=== PATIENT | female | born 1955 | race African-American/Black ===

== ENCOUNTER 2019-10-06 18:40 | Inpatient (IN) | payer MEDICARE ==
[~2019-10-06] VITALS: Ht 162.6 cm; Wt 56.7 kg
[2019-10-06 19:16] LABS: BASOPHILS % 0.4 % (0.0-1.0); EOSINOPHILS # (AUTO) 0.1 (0.0-0.4); HEMATOCRIT 37.7 % (34.2-44.1); HEMOGLOBIN 11.9 g/dL (12.0-16.0); LYMPHOCYTES # (AUTO) 2.5 (1.0-3.2); LYMPHOCYTES % 47.2 % (18.0-39.1); MEAN CORPUSCULAR HEMOGLOBIN 29.2 pg (28-32); MEAN CORPUSCULAR HGB CONC 31.6 g/dL (31-35); MEAN CORPUSCULAR VOLUME 92.4 fL (81-99); MONOCYTES # (AUTO) 0.5 (0.2-0.8); MONOCYTES % 9.2 % (4.4-11.3); NEUTROPHILS # (AUTO) 2.2 (2.1-6.9); PLATELET COUNT 216 x10e3/uL (140-360); RED BLOOD COUNT 4.08 x10e6/uL (3.6-5.1); RED CELL DISTRIBUTION WIDTH 14.2 % (11.7-14.4)
--- NOTE | 2019-10-06 19:31 | NUR ---
pt yelling at staff. pt states "please god why are you shocking me like this." pt lifting arms and shaking arms in present of staff. pt stating "why am i shaking like this." pt immediately stops shaking when redirected. pt repeatedly attempting to get out of stretcher and then closes eyes and attempts to slump over. pt immediately wakes up when nurse attempts to assist patient back to bed and becomes combative. pt yelling out "help me please."
[2019-10-06 19:33] LABS: ALANINE AMINOTRANSFERASE 12 IU/L (0-55); ALBUMIN 3.7 g/dL (3.5-5.0); ALBUMIN/GLOBULIN RATIO 0.9 (0.8-2.0); ALKALINE PHOSPHATASE 63 IU/L (40-150); CALCIUM 9.5 mg/dL (8.4-10.2); CARBON DIOXIDE 27 mmol/L (22-29); CHLORIDE 105 mmol/L (98-107); CREATINE KINASE 500 IU/L (29-168); CREATININE, SERUM 1.42 mg/dL (0.57-1.11); EST GLOMERULAR FILTRATION RATE 37 ML/MIN (60-); GLUCOSE 99 mg/dL (74-118); SODIUM 141 mmol/L (136-145)
[2019-10-06] MEDS ORDERED: LORAZEPAM INJ 2 MG/ML VIAL IV ONE (19:45)
--- NOTE | 2019-10-06 19:45 | NUR ---
pt remains agitated. pt yelling "im going to sylwia the hell out of all you for this, i cant breathe, im shaking, help me, help me."
[2019-10-06 19:50] LABS: BLOOD UREA NITROGEN 21 mg/dL (7-26); BUN/CREATININE RATIO 15 (6-25)
--- NOTE | 2019-10-06 19:55 | NUR ---
pt noted calm at this time after ativan. pt resting quietly in bed. no distress noted. resp even and unlabored on ra.
[2019-10-06 20:11] LABS: SALICYLATE < 5.0 mg/dL (0-30)
[2019-10-06 20:18] LABS: CLARITY,URINE CLEAR (CLEAR); COLOR,URINE YELLOW (YELLOW); LEUKOCYTE ESTERASE ,URINE SMALL (NEGATIVE); NITRITE,URINE NEGATIVE (NEGATIVE); PROTEIN,URINE DIPSTICK NEGATIVE (NEGATIVE)
[2019-10-06 20:19] LABS: AMPHETAMINES SCREEN,URINE NEGATIVE (NEGATIVE); BACTERIA,URINE MANY /HPF; BENZODIAZEPINES SCREEN,URINE POSITIVE (NEGATIVE); BILIRUBIN,URINE NEGATIVE (NEGATIVE); EPITHELIAL CELLS,URINE MANY /LPF; KETONES,URINE NEGATIVE (NEGATIVE); PHENCYCLIDINE SCREEN,URINE NEGATIVE (NEGATIVE); URINE UROBILINOGEN 0.2 mg/dL (0.2 - 1); WBC,URINE (MAN) >50 /HPF (0-5)
--- NOTE | 2019-10-06 20:21 | Diagnostic Imaging Report ---
EXAMINATION: CHEST SINGLE (PORTABLE) INDICATION: SOB COMPARISON: None FINDINGS: TUBES and LINES: None. LUNGS: Normal lung volumes. Strandy right basilar opacity, likely atelectasis.. PLEURA: No pleural effusion or pneumothorax. HEART AND MEDIASTINUM: The cardiomediastinal silhouette is unremarkable. BONES AND SOFT TISSUES: Impaction deformity of the greater tuberosity of the right humerus, likely remote trauma. UPPER ABDOMEN: No free air under the diaphragm. IMPRESSION: Mild strandy right basilar atelectasis. No consolidation. Signed by: Jethro Wallace MD on 10/06/2019 8:18 PM
[2019-10-06] MEDS ORDERED: CEFTRIAXONE SOD 1 GM/NS 50 ML 50 ML IV ONE (20:45)
--- NOTE | 2019-10-06 20:45 | Emergency Department Note ---
History of Present Illnes History of Present Illness Chief Complaint: General Medicine Complaints History of Present Illness This is a 63 year old female ems reports [facility] breathing. resp are even and unlabored, O2 sat ra 100%. pt on ems stretcher yelling "help me, help me." pt to rm 10 and transferred to bed. pt uncooperative, combative and yelling at staff. PT HAS PSYCHIATRIC HISTORY . Historian: Patient Arrival Mode: [place] Onset (how long ago): unknown Location: NONE Quality: REPORTED SOB Radiation: Reports non-radiation Severity: mild Onset quality: unable to specify Timing of current episode: unable to specify Progression: unable to specify Chronicity: new Context: Denies recent illness, Denies recent surgery, Denies trauma/injury Relieving factors: none Exacerbating factors: none Associated symptoms: Reports denies other symptoms Past Medical/Family History Physician Review I have reviewed the patient's past medical and family history. Any updates have been documented here. Past Medical History Recent Fever: No Clinical Suspicion of Infectio: No New/Unexplained Change in Ment: No Past Medical History: Hypertension, Other Mental Illness Other Surgery: r arm surgery for fracture Social History Smoking Cessation: Current every day smoker Counseling Performed: Yes Alcohol Use: None Any Illegal Drug Use: Yes ("smoke crack") Physically hurt or threatened: No Other Any Pre-Existing Lines (PICC,: No Review of Systems Review of Systems Constitutional: Reports no symptoms EENTM: Reports no symptoms Cardiovascular: Reports no symptoms Respiratory: Reports as per HPI Gastrointestinal: Reports no symptoms Genitourinary: Reports no symptoms Musculoskeletal: Reports no symptoms Integumentary: Reports no symptoms Neurological: Reports no symptoms Psychological: Reports emotional problems, Reports other (PT AGITATATED) Endocrine: Reports no symptoms Hematological/Lymphatic: Reports no symptoms Physical Exam Related Data Allergies: Coded Allergies: Penicillins (Verified Allergy, Unknown, 10/07/19) Triage Vital Signs Vital Signs Date Time Temp Pulse Resp B/P (MAP) Pulse Ox O2 Delivery O2 Flow Rate FiO2 10/06/19 19:02 97.9 85 19 157/99 100 Room Air Vital signs reviewed: Yes Physical Exam CONSTITUTIONAL Constitutional: Present well-developed, Present well-nourished; Absent distressed HENT HENT: Present normocephalic, Present atraumatic, Present oropharynx clear/moist, Present nose normal HENT L/R: Present left ext ear normal, Present right ext ear normal EYES Eyes: Reports PERRL, Reports conjunctivae normal NECK Neck: Present ROM normal PULMONARY Pulmonary: Present effort normal, Present breath sounds normal CARDIOVASCULAR Cardiovascular: Present regular rhythm, Present heart sounds normal, Present capillary refill normal, Present normal rate GASTROINTESTINAL Abdominal: Present soft, Present nontender, Present bowel sounds normal GENITOURINARY Genitourinary: Present exam deferred SKIN Skin: Present warm, Present dry MUSCULOSKELETAL Musculoskeletal: Present ROM normal NEUROLOGICAL Neurological: Present alert, Present no gross motor or sensory deficits, Present other (DISORIENTED TO TIME) PSYCHOLOGICAL Psychological: Present other (FLIGHT OF IDEASE, MANIC) Results Laboratory Result Diagram: 10/06/19191210/06/191912 Laboratory Laboratory Tests Test 10/06/19 19:25 10/06/19 19:15 10/06/19 19:13 Urine Color Yellow (YELLOW) Urine Clarity Clear (CLEAR) Urine pH 6 (5 - 7) Urine Specific [place] 1.025 (1.010-1.025) Urine Protein Negative (NEGATIVE) Urine Glucose (UA) Negative (NEGATIVE) Urine Ketones Negative (NEGATIVE) Urine Blood Trace (NEGATIVE) Urine Nitrite Negative (NEGATIVE) Urine Bilirubin Negative (NEGATIVE) Urine Urobilinogen 0.2 mg/dL (0.2 - 1) Urine Leukocyte Esterase Small (NEGATIVE) Urine RBC 11-20 /HPF (0-5) Urine WBC >50 /HPF (0-5) Urine Epithelial Cells Many /LPF (NONE) Urine Bacteria Many /HPF (NONE) Urine Opiates Screen Negative (NEGATIVE) Urine Methadone Screen Negative (NEGATIVE) Urine Barbiturates Screen Negative (NEGATIVE) Urine Phencyclidine Screen Negative (NEGATIVE) Urine Amphetamines Screen Negative (NEGATIVE) Urine Methamphetamines Screen Negative (NEGATIVE) Urine Benzodiazepines Screen Positive (NEGATIVE) Urine Cocaine Screen Negative (NEGATIVE) Urine Cannabinoids Screen Negative (NEGATIVE) Salicylates Level < 5.0 mg/dL (0-30) Acetaminophen Level < 3.0 ug/mL (10-30) Ethyl Alcohol Level < 10.0 mg/dL (0.0-10.0) White Blood Count 5.19 x10e3/uL (4.8-10.8) Red Blood Count 4.08 x10e6/uL (3.6-5.1) Hemoglobin 11.9 g/dL (12.0-16.0) Hematocrit 37.7 % (34.2-44.1) Mean Corpuscular Volume 92.4 fL (81-99) Mean Corpuscular Hemoglobin 29.2 pg (28-32) Mean Corpuscular Hemoglobin Concent 31.6 g/dL (31-35) Red Cell Distribution Width 14.2 % (11.7-14.4) Platelet Count 216 x10e3/uL (140-360) Neutrophils (%) (Auto) 42.0 % (38.7-80.0) Lymphocytes (%) (Auto) 47.2 % (18.0-39.1) Monocytes (%) (Auto) 9.2 % (4.4-11.3) Eosinophils (%) (Auto) 1.0 % (0.0-6.0) Basophils (%) (Auto) 0.4 % (0.0-1.0) Neutrophils # (Auto) 2.2 (2.1-6.9) Lymphocytes # (Auto) 2.5 (1.0-3.2) Monocytes # (Auto) 0.5 (0.2-0.8) Eosinophils # (Auto) 0.1 (0.0-0.4) Basophils # (Auto) 0.0 (0.0-0.1) Absolute Immature Granulocyte (auto 0.01 x10e3/uL (0-0.1) Sodium Level 141 mmol/L (136-145) Potassium Level 4.0 mmol/L (3.5-5.1) Chloride Level 105 mmol/L (98-107) Carbon Dioxide Level 27 mmol/L (22-29) Anion Gap 13.0 mmol/L (8-16) Blood Urea Nitrogen 21 mg/dL (7-26) Creatinine 1.42 mg/dL (0.57-1.11) Estimat Glomerular Filtration Rate 37 ML/MIN (60-) BUN/Creatinine Ratio 15 (6-25) Glucose Level 99 mg/dL (74-118) Calcium Level 9.5 mg/dL (8.4-10.2) Total Bilirubin 0.2 mg/dL (0.2-1.2) Aspartate Amino Transf (AST/SGOT) 20 IU/L (5-34) Alanine Aminotransferase (ALT/SGPT) 12 IU/L (0-55) Alkaline Phosphatase 63 IU/L (40-150) Creatine Kinase 500 IU/L (29-168) Creatine Kinase MB 3.60 ng/mL (0-5.0) Troponin I < 0.001 ng/mL (0-0.300) B-Type Natriuretic Peptide 21.1 pg/mL (0-100) Total Protein 7.6 g/dL (6.5-8.1) Albumin 3.7 g/dL (3.5-5.0) Globulin 3.9 g/dL (2.3-3.5) Albumin/Globulin Ratio 0.9 (0.8-2.0) Lab results reviewed: Yes Imaging Imaging results reviewed: Yes Impressions EXAMINATION: CHEST SINGLE (PORTABLE) INDICATION: SOB COMPARISON: None FINDINGS: TUBES and LINES: None. LUNGS: Normal lung volumes. Strandy right basilar opacity, likely atelectasis.. PLEURA: No pleural effusion or pneumothorax. HEART AND MEDIASTINUM: The cardiomediastinal silhouette is unremarkable. BONES AND SOFT TISSUES: Impaction deformity of the greater tuberosity of the right humerus, likely remote trauma. UPPER ABDOMEN: No free air under the diaphragm. IMPRESSION: Mild strandy right basilar atelectasis. No consolidation. Signed by: Mick Morales MD on 10/06/2019 8:18 PM Dictated By: MICK MORALES MD 17 Assessment & Plan Medical Decision Making MDM PT WITH REPORTED SOB BUT HAS MENTAL DISORDER AND IS AGITATED, SCREAMING, FLIGHT OF IDEAS CBC, CMP, CARDIAC ENZYME, CXR , UA ETOH, UDS, ACETAMINOPHEN, SALICYLATE, ORDERED TO CLEAR FOR PSYCHIATRIC EVALUATION, ATIVAN 1 MG IV ORDERED DUE TO PT'S AGITATION PT FOUND TO HAVE UTI ROCEPHIN 1 GRAM IV ORDERED BROWN FROM MAT TEAM ARRIVED AT 2150 TO EVALUATE PT IS SETTING UP INVOLUNTARY PSYCH, BENJA BEING OBTAINED Assessment & Plan Final Impression: (1) Schizoaffective disorder (2) Agitated (3) Paranoia (psychosis) Last Vital Signs Date Time Temp Pulse Resp B/P (MAP) Pulse Ox O2 Delivery O2 Flow Rate FiO2 10/06/19 19:02 97.9 85 19 157/99 100 Room Air Medications in the ED Lorazepam 1 mg ONCE ONCE IV Last administered on 10/06/19at 19:48; Admin Dose 1 MG; Start 10/06/19 at 19:45; Stop 10/06/19 at 19:46; Status DC JANY PALM MD Oct 06, 2019 20:45
--- NOTE | 2019-10-06 21:45 | NUR ---
SITTER ARRIVED PER ORDERS.
--- NOTE | 2019-10-06 21:48 | NUR ---
MAT NURSE ARRIVED TO EVAL PATIENT. LABRESULTS AND CHART PROVIDED. SPOKE TO MAT NURSE.
--- NOTE | 2019-10-07 00:15 | NUR ---
MAT NURSE COMPLETED EVAL. PAPERWORK ON CHART.
--- NOTE | 2019-10-07 02:23 | NUR ---
PT C/O FEELING RESTLESS. PT STATES THAT "SHOCKS ARE RUNNING THROUGH MY WHOLE BODY AGAIN." PT REQUESTING SEDATIVE. PT RESTING IN BED. NO DISTRESS NOTED RESP EVEN AND UNLABORED ON RA. INFORMED. ATIVAN ORDERED.
[2019-10-07] MEDS ORDERED: LORAZEPAM INJ 2 MG/ML VIAL IV ONE ×3 (02:30→23:15)
--- NOTE | 2019-10-07 08:02 | NUR ---
CALLED MAT TEAM SOMEONE IS COMING TO DO OPC THIS MORNING, SHE IS SELF PAY WILL HAVE TO WAIT UNTIL BED AVAILABLE, THEY HAVE BEEN RUNNING SLOW, PER ROLAND AT MAT DISPATCH.
[2019-10-07] MEDS ORDERED: ACETAMINOPHEN 325 MG TAB PO ONE ×2 (08:30→23:15)
[2019-10-07] MEDS ORDERED: LORAZEPAM INJ 2 MG/ML VIAL ONE ×2 (10:34→10:39)
--- NOTE | 2019-10-07 11:00 | NUR ---
TOOK OVER CARE FROM MERLY MORILLO AT THIS TIME. PT YELLING LOUDLY, "HELP ME, HELP ME!" UPON ASKING PATIENT WHAT SHE NEEDS, SHE IS UNABLE TO VOCALIZE WHAT IT IS SHE WANTS. PT CONTINUES TO SCREAM AND BE UNCCOPERATIVE. BOX TOE FLANGER STITCHDOWNS IS AT BEDSIDE 1:1. PATIENT DENIES WANTING TO HURT HERSELF OR OTHERS. WILL CONTINUE TO MONITOR CLOSELY.
--- NOTE | 2019-10-07 11:15 | NUR ---
PSYCH LIBRARY SERVICES COORDINATOR AT BEDSIDE TO ASSESS PATIENT AT THIS TIME.
[2019-10-07] MEDS ORDERED: HALOPERIDOL LACTATE 5 MG/ML VIAL IV ONE (11:30)
--- NOTE | 2019-10-07 12:29 | NUR ---
PATIENT IS RESTING COMFORTABLY IN STRETCHER AT THIS TIME. VITALS WNL, RESPIRATIONS EVEN AND UNLABORED. THERE ARE NO SIGNS OF DISTRESS. HANDLE ATTACHER AT BEDSIDE. ROOM IS FREE AND CLEAR OF ALL SAFETY HAZARDS. WILL CONTINUE TO MONITOR CLOSELY.
--- NOTE | 2019-10-07 15:00 | NUR ---
Pt escorted to restroom when she vocalized she needed to use restroom. Pt was very unsteady with ambulation and required 2-person assist. Pt's linens changed and placed in adult diaper due to also being incontinent. Patient placed back in bed and is now resting comfortably.
--- NOTE | 2019-10-07 16:45 | NUR ---
PT STATED SHE NEEDED TO GO TO THE RESTROOM. UPON ASSESSMENT, PATIENT HAD SOILED DIAPER. MONICA-CARE AND LINEN CHANGE PROVIDED BY PRIMARY RN AND ER PCT. PATIENT CALM.
--- NOTE | 2019-10-07 17:09 | NUR ---
DINNER HAS BEEN DELIVERED TO PATIENT'S BEDSIDE. NO UTENISLS ON TRAY. PT IS FEEDING HERSELF A BURGER, CHIPS, AND COOKIE. PATIENT EXHIBITS NO SIGNS OF DISTRESS OR PAIN. SITTER REMAINS AT BEDSIDE MONITORING PATIENT.
--- NOTE | 2019-10-07 17:49 | NUR ---
PATIENT HAS FINSIHED DINNER AND IS NOW LAYING IN BED WITH EYES CLOSED. RE-ASSESSED PATIENT'S VITALS. PATIENT STATED THE FOOD WAS VERY GOOD. PATIENT STATES, "I JUST WANT HELP FINDING MY WAY BACK." THIS CLINICIAN ASKED WHAT THAT MEANS, AND PATIENT THEN STATED SHE DIDN'T KNOW AND CLOSED HER EYES AGAIN. SITTER REMAINS AT BEDSIDE. WILL CONTINUE TO MONITOR.
--- NOTE | 2019-10-07 18:54 | NUR ---
PATIENT REMAINS IN BED WITH EYES CLOSED. CALM AT THIS TIME WITH SITTER AT BEDSIDE.
--- NOTE | 2019-10-07 21:31 | NUR ---
PATIENT CALM/COOPERATIVE, PROVIDED WITH SNACKS REQUESTED, 1:1 SITTER AT BEDSIDE, NAD, WILL CONTINUE TO MONITOR.
--- NOTE | 2019-10-07 23:03 | NUR ---
PATIENT CONTINUOUSLY ASKING TO SPEAK WITH THE LORD, C/O GENERALIZED BODY ACHES/PAINS AND GARCIA, INFORMED ATTENDING ED MD FOR ORDERS, PLACED VERBAL ORDERS, SEE MAR.
--- NOTE | 2019-10-08 07:30 | NUR ---
Assumed care of pt from Christopher MORELAND. Pt did not know what month it is, reoriented pt, pt reported her , informed pt today is her Birthday. Sang pt "happy birthday" with tech and pt started to smile. Pt started after a few minutes later to report the bed was shocking her. Noted pt was on stretcher without any additional padding, added waffle mattress to stretcher for additional protection to prevent skin breakdown and comfort.
[2019-10-08] MEDS ORDERED: HALOPERIDOL LACTATE 5 MG/ML VIAL IV ONE (09:30)
[2019-10-08] MEDS ORDERED: HALOPERIDOL LACTATE 5 MG/ML VIAL ONE (09:39)
--- NOTE | 2019-10-08 09:45 | NUR ---
Pt crying and yelling out "help me please, it's shocking me" repeatedly. Pt given Haldol 5mg for agitation. Pt has hx of schizoeffective disorder.
--- NOTE | 2019-10-08 09:53 | NUR ---
Called MAT team, this RN was notified that at 1200 they receive updates from [facility] and will call back and update this RN after notification.
[2019-10-08] MEDS ORDERED: CEFTRIAXONE SOD 1 GM/NS 50 ML 50 ML IV ONE (13:26)
[2019-10-08] MEDS ORDERED: LORAZEPAM INJ 2 MG/ML VIAL ONE (13:40)
[2019-10-08] MEDS ORDERED: LORAZEPAM INJ 2 MG/ML VIAL IV ONE (14:30)
--- NOTE | 2019-10-08 17:54 | NUR ---
Repeat CK redrawn
--- NOTE | 2019-10-09 05:31 | NUR ---
CINTIA BLAINEBetty CALLED AT THIS TIME FOR STATUS UPDATE. REQUESTED LABS WERE RECEIVED. PTS ADMITION IS BEING REVIEWED.
[2019-10-09] MEDS ORDERED: LORAZEPAM INJ 2 MG/ML VIAL IV ONE ×2 (07:00)
--- NOTE | 2019-10-09 07:00 | NUR ---
received report from off going nurse. 1:1 sitter at bedside. no s/s of acute distress. resp even and non labored. pending room assignment for transfer.
--- NOTE | 2019-10-09 08:41 | Diagnostic Imaging Report ---
ADDENDUM #1 Tiny parenchymal calcification within the right occipital chronic infarct is nonspecific, comparison to prior studies if available is recommended. Signed by: Dr. Maisha Goldsmith M.D. on 10/09/2019 10:02 AM ORIGINAL REPORT EXAMINATION: Head CT HISTORY: Altered mental status COMPARISON: None. TECHNIQUE: Helical axial images of the head were obtained. Reformatted coronal and sagittal images from the axial data. Dose modulation, iterative reconstruction, and/or weight based adjustment of the mA/kV was utilized to reduce the radiation dose to as low as reasonably achievable. Image quality: Motion/streaking artifact limits the evaluation of the skull base and posterior cranial fossa. FINDINGS: Parenchyma: 1. Cortical and subcortical encephalomalacia in the right lateral occipito-parietal region and right inferior temporal gyrus, likely related to a watershed distribution (in between the MCA and DIVORCE ATTORNEY vascular territories) chronic infarct with compensatory dilatation of the right atrium and temporal horn. 2. Severe confluent periventricular, whipple radiata and centrum semiovale white matter hypodensities, most likely nonspecific chronic microvascular ischemic changes. 3. Small chronic lacunar infarct in the left caudothalamic groove, bilateral putamen and whipple radiata. 4. No mass or hemorrhage. No CT evidence of acute territorial vascular insult. Extra-axial spaces:No abnormal density. No extra-axial fluid collections Brain volume: Normal for age. Ventricles: No hydrocephalus or displacement. Arteries: No density suggestive of thrombus. Dural sinuses: No abnormal density. Foramen magnum: No mass, Chiari malformation, or basilar invagination. Sella: No obvious mass. Paranasal/mastoid sinuses: Imaged portions unremarkable. Skull/Scalp: No lytic or blastic lesions. No fractures. IMPRESSION: 1. No acute intracranial abnormalities. 2. Right occipito-parietal and inferior temporal chronic infarct as detailed above. 3. Severe confluent chronic microvascular ischemic changes as above. Signed by: Dr. Maisha Goldsmith M.D. on 10/09/2019 8:37 AM
--- NOTE | 2019-10-09 09:39 | NUR ---
MAT TEAM CALLED TO SEE IF CHANGE IN PT, SPOKE WITH DR NICHOLS, WILL FAX MORE [employer]CLUSION[employer] TO FAX TO MORE PLACEMENTS TO SEE IF ANOTHER BUILDING WILL TAKE HER. LET HER KNOW THAT SHE NOW IS FORGETFUL AND STATING NOT UNDERSTANDING HOW SHE GOT HERE. ALSO ABLE TO REPORT THE PT IS GETTING ATIVAN. MAINFRAME DEVELOPER WILL GET THE FAXES AND OBTAIN SR NICHOLS SIGNATURES AND FAX BACK TO MAT TEAM FOR PROCESSING.
[2019-10-09] MEDS ORDERED: ZIPRASIDONE 20 MG VIAL IM STA (09:59)
[2019-10-09] MEDS ORDERED: LORAZEPAM INJ 2 MG/ML VIAL IV PRN ×2 (10:00→14:30)
[2019-10-09] MEDS: CEFTRIAXONE SOD 1 GM/NS 50 ML 50 ML IV SCH ×2 (10:18→21:00)
[2019-10-09] MEDS ORDERED: SODIUM CHLORIDE 0.9% 1000ML 1,000 ML IV SCH (11:00)
[2019-10-09] MEDS ORDERED: ZIPRASIDONE 20 MG VIAL IM PRN ×2 (13:15→14:15)
[2019-10-09] MEDS ORDERED: ASPIRIN 81 MG CHEW TAB PO ONE ×2 (13:15)
--- NOTE | 2019-10-09 13:20 | NUR ---
RCD PT FROM ER BY BED PT IS CONFUSED 1;1 SITTER WITH PATIENT AC TO ER NURSE REPORT PT FROM [facility] WE DONT NO ANY CONTACT NUMBER OR NO FAMILY CONTACT ,ADMISSION ASSESSMENT AND HISTORY DONE ,IV PATENT BY SALINE FLUSH AND STARTED D5 WITH NS 75 ML/HR ,BP 170/108 MM/HG NOTIFIED DR ZAVALA GOT NEW ORDERS,BED LOW AND LOCKED CALL LIGHT IN REACH
[2019-10-09 14:00] VITALS: BP 171/108
[2019-10-09] MEDS: DEXTROSE 5%/0.45% SOD CHL 1,000 ML IV SCH (14:15)
[2019-10-09 14:35] VITALS: BP 171/108
[2019-10-09] MEDS: RISPERIDONE 0.5 MG TAB PO SCH (15:04)
[2019-10-09] MEDS: HYDRALAZINE HCL 20 MG/ML VIAL IV PRN (15:05)
[2019-10-09 17:00] VITALS: BP 160/80
--- NOTE | 2019-10-09 18:20 | History and Physical ---
ADDENDUM: She also had UTI, started on IV Rocephin. We put her on Geodon 10 mg q.6 hours as needed due to the extreme agitation that she does have. We are going to send the urine for cultures also. She got the first dose of Rocephin in the emergency room. Carotid Doppler, echocardiogram has been done as part of the workup for old CVA that she had. We are going to check the total CK tomorrow and CK-MB and troponin also because of the elevated total CPK, which is most likely secondary to rhabdomyolysis. The patient is very poor historian. We are waiting for a possible transfer to [facility] due to the severe psychosis. Diet low-salt diet. I put her on Norvasc 10 mg daily and also hydralazine 10 mg IV every 4 hours as needed for hypertension. MD MASSIMO Barkley/REHANA /[id number]
--- NOTE | 2019-10-09 18:40 | NUR ---
notified the charge nurse about iv access she said she will start the new iv
--- NOTE | 2019-10-09 18:41 | History and Physical ---
HISTORY OF PRESENT ILLNESS: The patient is a 64-year-old female, who claimed that she has no past medical history, came to the emergency room two days ago with extreme confusion, hypertension, possible UTI, started on IV antibiotics. She had rhabdomyolysis. Started on IV fluids. The patient waiting to be transferred to [facility] facility due to psychosis. REVIEW OF SYSTEMS: CARDIOVASCULAR: No chest pain or palpitation. RESPIRATORY: No shortness of breath. No cough. GASTROINTESTINAL: No nausea. No vomiting. No diarrhea. GENITOURINARY: No frequency or dysuria. ALLERGIES: SHE IS ALLERGIC TO PENICILLIN. SOCIAL HISTORY: She smokes. She does not drink. PAST MEDICAL HISTORY: She denies any medical condition. PHYSICAL EXAMINATION: VITAL SIGNS: Blood pressure 132/74, temperature 98.1, heart rate 77 per minute, respiratory rate 16 per minute. HEART: Showed regular rate and rhythm. Normal S1, S2 sound. LUNGS: Clear bilaterally. ABDOMEN: Soft. EXTREMITIES: Show no edema. IMAGING DATA: Chest x-ray showed no significant abnormalities except for mild strandy right basilar atelectasis. No consolidation. CT of the head was done also which showed no acute intracranial abnormality. Right occipital parietal inferior temporal chronic infarct as stated above. Severe confluent chronic microvascular ischemic changes as above. Severe confluent periventricular whipple radiata and centrum semiovale white matter hypodensity, most likely nonspecific, chronic microvascular ischemic changes. Also, she was found to have some old chronic lacunar infarct . No mass or hemorrhage. No CT evidence for acute vascular insult likely chronic findings. LABORATORY DATA: On the blood work, we have CBC; white blood count 5.19, hemoglobin 11.9, hematocrit 37.7, and platelet count 216,000. On the BMP; sodium 131, potassium 4.0, chloride 105, CO2 27, BUN 21, creatinine 1.42, GFR 37, glucose 99, calcium 9.5, total bilirubin 0.2, AST 20, ALT 12, alkaline phosphatase 63, creatine kinase 509, CK-MB normal at 3.60, troponin 0.001, brain natriuretic peptide 21.1, total protein 7.6, albumin 3.7, albumin globulin ratio 0.9. Toxicology positive for benzodiazepines and Tylenol. Coronavirus test is pending. FINAL IMPRESSION: 1. Uncontrolled hypertension. 2. Psychosis. 3. Chronic renal failure stage 3. 4. Rhabdomyolysis. 5. Old right cerebrovascular accident without motor deficit. PLAN OF TREATMENT: Continue IV fluids. Continue monitoring total CK due to rhabdomyolysis. Continue ceftriaxone 1 g IV twice a day for possible UTI. Continue Tylenol 325 mg q.4 hours as needed for pain or fever. Aspirin 325 mg daily. She cannot take any statins because of the elevated CK. Continue Risperdal 0.25 mg twice a day. Continue Geodon 20 mg IM daily as needed for agitation. Psychiatric consult with Dr. Costa and also Neurology consult with Dr. Sebastian due to the old CVA. We are going to also do a carotid Doppler, echocardiogram. In the meantime, we are working to try to see if we can get her to a psych facility. MD MASSIMO Barkley/REHANA /[id number]
--- NOTE | 2019-10-09 18:43 | NUR ---
PT IS CONFUSED AND AGITATED I;1 SITTER WITH PT ,PULL THE IV OUT
--- NOTE | 2019-10-09 18:47 | NUR ---
PAGED DR ZAVALA TO NOTIFY OSMANY THE PT PULL THE IV LINE OUT
--- NOTE | 2019-10-09 18:53 | NUR ---
DR ZAVALA RETURNED THE CALL AND GOT NEW ORDERS
[2019-10-09] MEDS ORDERED: HALOPERIDOL LACTATE 5 MG/ML VIAL IM PRN (19:00)
[2019-10-09 19:44] VITALS: BP 161/105
[2019-10-09] MEDS: ACETAMINOPHEN 325 MG TAB PO PRN ×2 (19:48→23:45)
--- NOTE | 2019-10-09 19:56 | NUR ---
RECEIVE DPT IN BED CONFUSED ,NO IV LINE ,P T HAS SITTER ,PT HAD SHOWER NOW.AFTER SHOWER PT C/O HEADACHE AND GIVEN ORDERED MEDICINE CALL LIGHT WITH IN REACH ,CONTINUE TO MONITOR
[2019-10-09 20:20] VITALS: BP 161/105
[2019-10-09] MEDS ORDERED: ATORVASTATIN 20 MG TAB PO SCH (21:00)
--- NOTE | 2019-10-09 22:06 | Consultation ---
DATE OF CONSULTATION: Neurology Consultation HISTORY OF PRESENT ILLNESS: Margarita Mccoy is a 64-year-old female, comes to my attention for agitated confusion. The patient is denying any actual acute medical issues. States she does know she is in the hospital. States her sister, Kathleen, has a ploy to get her out of the house. She does not recall exactly how she got to the hospital. Denies being in the ambulance. According to the medical history from the record, the patient was actually brought in from a homeless [facility]pc and her sister does not seem to have been involved. I called the sister's number, I was not able to get anybody. REVIEW OF SYSTEMS: At this point, the patient denies any positives in the 14-point review of systems. PHYSICAL EXAMINATION: VITAL SIGNS: Stable. She is afebrile. Heart rate is 87, breathing comfortably on room air. Blood pressure is 136/82. GENERAL: Shows an awake, slightly angry woman. HEENT: Extraocular muscle intact. Face symmetric. Tongue is midline. Speech is clear. There is no nuchal rigidity. Pulses are regular rate and rhythm. PULMONARY: She is breathing comfortably on room air. There is no ataxia on exam. She does follow some commands, but she is somewhat paranoid and confused about her situation and is not able to participate very much. ASSESSMENT AND PLAN: I am seeing . Margarita Mccoy for agitated delirium. I think paranoid ideation, possibly schizophrenia might be playing a role. I would recommend having Psychiatry involved as well and will go from there. Otherwise, I would like to start Depakote to more dictating what her labs looks like. MD BRENDEN SIMON/WILBERTOL /[id number]
[2019-10-09 23:12] VITALS: BP 157/91
[2019-10-10] VITALS (8 sets, daily range): BP systolic 112–160; BP diastolic 67–102
[2019-10-10] MEDS: ACETAMINOPHEN 325 MG TAB PO PRN (04:15)
--- NOTE | 2019-10-10 05:45 | NUR ---
PT C/O LEG PAIN GIVEN ORDERED PAIN MEDICATION CALL LIGHT WITHIN REACH , SITTER IN THE ROOM CONTINUE TO MONITOR
[2019-10-10] MEDS: DEXTROSE 5%/0.45% SOD CHL 1,000 ML IV SCH (06:06)
--- NOTE | 2019-10-10 07:05 | NUR ---
PT REFUSED LAB ,BEDSIDE REPORT GIVEN TO THE ONCOMING NURSE
--- NOTE | 2019-10-10 07:10 | NUR ---
RCD PT AT BED PT IS CONFUSED 1;1 SITTER WITH PT ,IV PATENT AND RUNNING 75 ML /HR BED LOW AND LOCKED CALL LIGHT IN REACH
[2019-10-10] MEDS: CEFTRIAXONE SOD 1 GM/NS 50 ML 50 ML IV SCH (09:00)
[2019-10-10] MEDS: RISPERIDONE 0.5 MG TAB PO SCH (09:00)
[2019-10-10] MEDS ORDERED: ASPIRIN 325 MG TAB PO SCH (09:00)
[2019-10-10] MEDS ORDERED: AMLODIPINE BESYLATE 10 MG TAB PO SCH (09:00)
--- NOTE | 2019-10-10 09:08 | NUR ---
CALLED MAT TEAM, STILL PENDING PLACEMENT. LEV STATES THAT [facility] TYPICALLY DISCHARGES AROUND NOON AND WILL NOT BE ABLE TO KNOW ABOUT ANY ACCEPTANCES UNTIL AFTER THAT. WILL FOLLOW UP,
[2019-10-10] MEDS ORDERED: LOSARTAN POTASSIUM 100 MG TAB PO SCH (10:00)
[2019-10-10] MEDS ORDERED: ASPIRIN 81 MG CHEW TAB PO ONE (10:00)
--- NOTE | 2019-10-10 10:07 | NUR ---
SPOKE WITH PATIENT, SHE WAS ABLE TO GIVE SSN PROVIDED TO BUSINESS OFFICE, HAS BENEFITS, UPDATED FACESHEET LET MD KNOW, FAXED TO MAT TEAM, SHOULD BE PLACED TODAY.
--- NOTE | 2019-10-10 10:09 | Progress Note ---
DATE: Internal Medicine Progress Note SUBJECTIVE: The patient is still agitated, but much less than yesterday. We are still waiting for placement in inpatient psych facility. PHYSICAL EXAMINATION: HEART: Showed regular rhythm. Normal S1 and S2 sound. LUNGS: Clear bilaterally. ABDOMEN: Soft. EXTREMITIES: Show no edema. VITAL SIGNS: Blood pressure 160/86, temperature 97.6, heart rate 90 per minute, respiratory rate 16 per minute, and oxygen saturation 99%. LABORATORY DATA: On the CBC; white blood count 5.19, hemoglobin 11.9, hematocrit 37.7, and platelet count 216,000. On the BMP; sodium 141, potassium 4.0, chloride 105, CO2 27, BUN 21, creatinine 1.42, glucose 99, and calcium is 9.5. Total bilirubin 0.2, AST 20, ALT 12, and alkaline phosphatase 63. Total CK 509, CK-MB 3.60, and troponin 0.01. Brain natriuretic peptide 21.1. Total protein 7.6, albumin 3.7, and globulin 3.9. Coronavirus test is pending. The patient is refusing blood tests also. FINAL IMPRESSION: 1. Rhabdomyolysis. 2. Urinary tract infection. 3. Psychosis. 4. Uncontrolled hypertension. PLAN OF TREATMENT: We are going to continue antibiotics. We are going to change to p.o. because the patient at time pulled the IV line. Continue IV fluids because of rhabdomyolysis. Continue monitoring CK. Continue with amlodipine 10 mg daily. We are going to start her on losartan 50 mg daily. Also continue with Haldol 2 mg IM q.6 hours as needed for agitation, hydralazine 10 mg IV q.4 hours as needed for hypertension, lorazepam 1 mg IV q.6 hours as needed for agitation, Risperdal 0.25 mg twice a day around the clock, Zofran 4 mg IV, and Geodon 10 mg IM q.6 hours as needed for agitation. Psych consult with Dr. Costa also and Neurology consult with Dr. Sebastian also because of the history of old CVA. Also, we are going to order echocardiogram and carotid Doppler, put the patient on aspirin. We are going to start statins because of the rhabdomyolysis. MD MASSIMO Barkley/REHANA /[id number]
--- NOTE | 2019-10-10 11:00 | NUR ---
PT REFUSED BLOOD DRAW FOR TEST PAGED AND NOTIFIED DR ZAVALA HE SAID ITS OK
[2019-10-10] MEDS ORDERED: QUETIAPINE FUMARATE 25 MG TAB PO PRN (11:30)
[2019-10-10] MEDS ORDERED: LORAZEPAM INJ 2 MG/ML VIAL IV PRN (11:30)
[2019-10-10] MEDS: HYDRALAZINE HCL 20 MG/ML VIAL IV PRN (12:18)
--- NOTE | 2019-10-10 13:35 | NUR ---
SPOKE WITH ROGELIO AT [facility] [place]ILIT[place] DOC TO DOC PAGED DR RAI TO DR SALLY CLARK, PT ACCEPTED COMPLETING MOT LET DOC KNOW WAITING ON CONSTABLE TO [facility] [employer] [facility]PA[facility] PATIENT.
--- NOTE | 2019-10-10 13:36 | NUR ---
PAGED DR ZAVALA AND NOTIFIED PT IS ACCEPTED BY [facility] GOT THE DISCHARGE ORDER AND GOT THE ORDER TO DC IVF AND ANTIBIOTICS
--- NOTE | 2019-10-10 14:00 | NUR ---
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
--- NOTE | 2019-10-10 16:15 | Discharge Summary ---
HOSPITAL COURSE: A 64-year-old female, no past medical history, came here with confusion, extreme agitation, screaming all the time. The patient has to be started on antipsychotics here to keep her calm. Blood pressure was very high, we start her on a combination of amlodipine, losartan, and scheduled hydralazine as needed. Blood pressure started getting better with a combination of medication. We started losartan today so hopefully will be bringing down the blood pressure for the next few days. The patient also had rhabdomyolysis. She was started on IV fluids, but she is refusing IV fluids. She is pulling all the IV lines, refusing blood work. The patient blood pressure is better now. She is going to be transferred to inpatient psych facility due to extreme agitation, most likely secondary to dementia or schizophrenia. PHYSICAL EXAMINATION: HEART: Showed regular rhythm. Normal S1, S2 sound. LUNGS: Clear bilaterally. ABDOMEN: Soft. EXTREMITIES: Show no edema. VITAL SIGNS: : Temperature 98.2, heart rate 94 per minute, respiratory rate 18 per minute, blood pressure 112/67, it was today. Hopefully with blood pressure medication, blood pressure will continue to improve. LABORATORY DATA: Urine was done, it showed some contamination with Streptococcus, but less than 100,000 colonies of bacteria. FINAL IMPRESSION: 1. Psychosis, most likely secondary to dementia with schizophrenia. 2. Uncontrolled hypertension. 3. Rhabdomyolysis. PLAN OF TREATMENT: The patient will continue with current medication regimen, which include amlodipine 10 mg daily, losartan 50 mg daily, aspirin 325 mg daily. She is taking Haldol 2 mg IV q.6 hours as needed for agitation. She is taking also Seroquel 25 mg q.6 hours as needed for psychosis, losartan 50 mg daily, Risperdal 0.5 mg twice a day so that the patient is being much more calmer. Blood pressure is improving. The patient is going to be transferred to inpatient psych facility as I said, the patient is refusing IV fluids, IV antibiotics, so we are encouraging to drink more fluid for the rhabdomyolysis that she had, but were unable to check on that because the patient is refusing IV fluid. Another diagnosis, a history of old CVA, for that actually she is taking aspirin, she cannot take statins because the patient had also elevated CKs secondary to rhabdomyolysis. The patient is refusing IV fluids, pulling IV lines, so hopefully she will increase the amount of fluid that would improve the rhabdomyolysis. Troponins are completely negative. The patient has been accepted by the inpatient psych facility. MD MASSIMO Barkley/REHANA /[id number]
--- NOTE | 2019-10-10 18:47 | NUR ---
PT STILL CONFUSED 1;1 SITTER WITH PT AND WAITING FOR SUPERVISOR STAVE FINISHING ,BED SIDE REPORT GIVEN TO ONCOMING NURSE
--- NOTE | 2019-10-10 19:17 | NUR ---
RECEIVED PT SITTING ON THE SIDE OF THE BED ,NO ACUTE DISTRESS NOTED ORDERED TO DISCHARGE THE PT .SITTER TO THE WILL OF THE BED.CALL LIGHT WITH IN REACH ,CONTINUE TO MONITOR
--- NOTE | 2019-10-10 19:58 | NUR ---
PT IS DISCHARGED [facility] [place] ,PT WAS TAKEN TO [facility] BY BY BENEDICTO .BELONGINGS GIVEN TO THE PT .
[2019-10-10] MEDS ORDERED: RISPERIDONE 0.5 MG TAB PO SCH (21:00)
--- NOTE | 2019-10-10 21:46 | Consultation ---
DATE OF CONSULTATION: 10/10/2019 Psychiatric Consultation REASON FOR CONSULTATION: The patient evaluated and events noted. HISTORY OF PRESENT ILLNESS: The patient is a 64-year-old female, admitted to the hospital for altered mental status. Psychiatric consultation is called to evaluate the patient's psychosis. As per medical record, the patient had history of hypertension, psychosis, renal failure, rhabdomyolysis, and CVA. Upon evaluation today, the patient was found to be in the room with a sitter. She is alert, awake, and oriented to situation. She is calm, cooperative, and easily irritable. She is oriented to self only. She thinks she is at home at her friend's house. The patient does not know the current president. She denies any depression or anxiety. She denies any suicidal or homicidal ideation. She denies any problem with sleep or appetite. She is not paranoid at this time. Denies any hallucination. As per the sitter, the patient has been calm. She was confused yesterday, but doing much better today. PAST PSYCHIATRIC HISTORY: The patient denies past psychiatric history, though as per note, she has a history of schizoaffective disorder and some paranoia. She denies suicide attempts. She denies alcohol or drug use. FAMILY HISTORY: Denies. SOCIAL HISTORY: The patient is a living in a homeless senior care as per staff. MENTAL STATUS EXAM: The patient is an female. She is alert, awake, and oriented to self. She is confused. Her mood is fair and dysphoric. Her affect is blunt. Psychomotor status is passive. Thought process is loose. Insight and judgment are impaired. No paranoia elicited at this time. Denies suicidal or homicidal ideation. Denies any hallucination. Memory appears to be grossly impaired. CURRENT MEDICATION: 1. Aspirin p.r.n. 2. Amlodipine. 3. Risperdal 0.25 mg p.o. b.i.d. 4. Ceftriaxone. 5. Dextrose/sodium. 6. Acetaminophen. 7. Ativan p.r.n. IV. 8. Haldol p.r.n. IM. CURRENT LABS: WBC 5.19, RBC 4.08, hemoglobin 11.9, hematocrit 37.7. Chemistry; sodium is 141, potassium 4, chloride 105, CO2 27, BUN 21 and creatinine 1.42. AST 20, ALT 12. ASSESSMENT: 1. Unspecified psychosis (possible history of schizoaffective disorder). 2. Dementia. PLAN OF TREATMENT: 1. Increase Risperdal. 2. Reduce Ativan. 3. Continue Haldol p.r.n. IM. 4. Monitor for mood. 5. Supportive therapy. Thank you for this consultation. Dictated by Jeaneth Wells PA-C Stuart Costa MD QTV/MODL /[id number]
== END 2019-10-10 19:52 | DRG 885 ==
LOC: ER 18:46 → ERHOLD 10-09 10:57 → MED/SURG2 10-09 13:31 → OBSVTOIN 10-10 09:06
PROVIDERS: ADMIT Internal Medicine; ATTEND Internal Medicine
DX: F20.0 Paranoid schizophrenia (principal); F03.91 Unspecified dementia, unspecified severity, with behavioral disturbance; M62.82 Rhabdomyolysis; F05 Delirium due to known physiological condition; N39.0 Urinary tract infection, site not specified; Z86.73 Personal history of transient ischemic attack (TIA), and cerebral infarction without residual deficits; Z59.0 Homelessness; Z11.59 Encounter for screening for other viral diseases; Z53.20 Procedure and treatment not carried out because of patient's decision for unspecified reasons; Z88.0 Allergy status to penicillin; I12.9 Hypertensive chronic kidney disease with stage 1 through stage 4 chronic kidney disease, or unspecified chronic kidney disease; N18.3 Chronic kidney disease, stage 3 (moderate)
CPT/HCPCS: 36415; 70450; 71045; 80053; 80307; 80320; 80329; 81001; 82550; 82553; 83880; 84484; 85025; 87086; 87186; 93005; 93306; 93880; 99284; G0378; J0360; J0696; J1630; J2060; J3486; U0002